=== PATIENT | female | born 1955 | race Caucasian/White ===

== ENCOUNTER 2017-06-25 18:15 | Emergency (ER) | payer OTHER, MEDICARE ==
[~2017-06-25] VITALS: Ht 157.5 cm; Wt 90.7 kg
[~2017-06-25 18:15] MED LIST: AMITRIPTYLINE100 M2 PO; CLOBETASOL PROP15 G1 TOP; CLONAZEPAM1 M2 PO; COUMADIN2.5 M1 PO; FENOFIBRATE145 M1 PO; LEVOTHYROXINE75 MCG PO; METHADONE HCL10 M1 PO; RISPERIDONE4 M1 PO; VENLAFAXINE HC100 M1 PO; VITAMIN D250000 UNIT PO
--- NOTE | 2017-06-25 18:25 | ED AMS/SEIZURE/WEAK/DIZZY ---
See Addendum History of Present Illness General Chief Complaint: Altered Mental Status Stated Complaint: AMS Source: patient, friend Exam Limitations: no limitations Vital Signs & Intake/Output Vital Signs & Intake/Output Vital Signs Date Time Temp Pulse Resp B/P B/P Pulse O2 O2 Flow FiO2 Mean Ox Delivery Rate 06/26 1414 97.8 68 16 123/64 99 Room Air 06/26 1218 98.2 78 18 138/65 98 Room Air 06/26 0954 97.8 72 16 126/63 98 Room Air 06/26 0752 97.7 68 16 101/60 99 Room Air 06/25 2139 98.3 83 18 118/59 95 06/25 1940 968.2 82 20 111/59 98 Room Air 06/25 1859 96 Room Air 06/25 1821 98.1 109 18 146/94 97 Room Air ED Intake and Output 06/26 0000 06/25 1200 Intake Total 0 Output Total Balance 0 Intake, IV 0 Patient 200 lb Weight Weight Reported by Patient Measurement Method Allergies Coded Allergies: codeine (Severe, SWOLLEN TONGUE 09/07/15) Triage Nurses Notes Reviewed? yes Onset: Gradual Duration: week(s): Timing: recent history Injury Environment: home Severity: moderate HPI: 62yo female with hx of PE/DVT, hypothyroidism, depression presents to ED for disorientation. Patient's friend is with her and friend states patient has-been acting abnormally today. Patient walked out of [employer] without paying for something. She had multiple conversations with her friend which seemed abnormal and off track. Friend believes that patient has been "off" for several months since the of her . When asked about these symptoms patient is unable to give much history, will answer with responses that don't make sense. Patient reports depression however denies SI/HI. The patient denies AH/VH , abdominal pain, fevers. (Donya DARNELL,Kelsey Daly) Reconcile Medications Amitriptyline HCl 100 MG TABLET 1 TAB PO QHS DEPRESSION/INSOMNIA (Reported) Clonazepam 1 MG TABLET 1 TAB PO BID ANXIETY (Reported) Ergocalciferol (Vitamin D2) (Vitamin D2) 50,000 UNIT CAPSULE 1 CAP PO U03AOAM SUPPLEMENT (Reported) Fenofibrate Nanocrystallized (Fenofibrate) 145 MG TABLET 1 TAB PO DAILY CHOLESTEROL (Reported) Levothyroxine Sodium 75 MCG TABLET 1 TAB PO DAILY HYPOTHYROIDISM (Reported) Methadone Hydrochloride (Methadone HCl) 10 MG TABLET 120 MG PO D SUBSTANCE ABUSE HX (Reported) Risperidone 4 MG TABLET 1 TAB PO QPM DEPRESSION (Reported) Venlafaxine HCl 100 MG TABLET 1 TAB PO QPM DEPRESSION (Reported) Warfarin Sodium (Coumadin) 2.5 MG TABLET 1 TAB PO 1700 CLOT (Reported) (Jacek Pillai DO) Past History Travel History Traveled to [place] past 21 day No Medical History Any Pertinent Medical History? 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 No (Kelsey Ho) Review of Systems Review of Systems Constitutional: Reports: no symptoms. EENTM: Reports: no symptoms. Respiratory: Reports: no symptoms. Cardiovascular: Reports: no symptoms. GI: Reports: no symptoms. Genitourinary: Reports: no symptoms. Musculoskeletal: Reports: no symptoms. Skin: Reports: no symptoms. Neurological/Psychological: Reports: see HPI. Hematologic/Endocrine: Reports: no symptoms. Immunologic/Allergic: Reports: no symptoms. All Other Systems: Reviewed and Negative (Kelsey Ho) Physical Exam Physical Exam General Appearance: well developed/nourished, no apparent distress, alert, awake Head: atraumatic, normal appearance Eyes: Bilateral: normal appearance, PERRL, EOMI. Ears, Nose, Throat: normal pharynx, hearing grossly normal Neck: normal inspection, supple, full range of motion Respiratory: normal breath sounds, no respiratory distress, lungs clear Cardiovascular: regular rate/rhythm Gastrointestinal: normal bowel sounds, soft, non-tender, no organomegaly Back: normal inspection, normal range of motion Extremities: normal range of motion Neurologic/Psych: no motor/sensory deficits, awake, alert, oriented x 3, manager clinic II- XII nml as tested Skin: intact, erythematous rash to bilateral hands, no swelling, warmth or tenderness Core Measures ACS in differential dx? No CVA/TIA Diagnosis No Sepsis Present: No Sepsis Focused Exam Completed? No (Donya DARNELL,Kelsey Daly) Progress Differential Diagnosis: arrythmia, alcohol intoxication, anemia, benign positional vertigo, CVA/stroke, dehydration, drug intoxication, encephalitis, electrolyte imbalance, hypoglycemia, intracranial Hem., intracranial mass/tumor, sepsis, UTI/pyelo Plan of Care: Orders Procedure Date/time Status Regular Diet 06/26 B Active Add-on Test (ER Only) 06/26 1046 Active EKG 06/26 1042 Active Patient Safety Monitor 06/26 0907 Active ED CRISIS PSYCH CONSULT 06/25 2041 Active ACETOMINOPHEN 06/25 1830 Complete SALICYLATE 06/25 1830 Complete Add-on Test (ER Only) 06/25 1824 Active URINE DRUG SCREEN FOR ER ONLY 06/25 1822 Complete URINALYSIS 06/25 1822 Complete THYROID STIMULATING HORMONE 06/25 1822 Complete FREE T4 06/25 1822 Complete ETHANOL 06/25 1822 Complete COMPREHENSIVE METABOLIC PANEL 06/25 1822 Complete CBC WITHOUT DIFFERENTIAL 06/25 1822 Complete Laboratory Tests 06/25/172054: Urine Opiates Screen < 100, Methadone Screen > 735 H, Barbiturate Screen < 60, Ur Phencyclidine Scrn 13.50, Amphetamines Screen 1415 H, U Benzodiazepines Scrn 113, Urine Cocaine Screen < 50, Urine Cannabis Screen < 5.00, Urine Color ROBYN, Urine Clarity HAZY H, Urine pH 6.0, Ur Specific [place] >= 1.030, Urine Protein NEG, Urine Ketones NEG, Urine Nitrite POS H, Urine Bilirubin NEG@ICTO, Urine Urobilinogen 0.2, Ur Leukocyte Esterase SMALL H, Ur Microscopic SEDIMENT EXAMINED, Urine RBC 1-3, Urine WBC 10-15 H, Ur Epithelial Cells MANY H, Urine Bacteria PACKD H, Urine Mucus RARE, Urine Hemoglobin SMALL H, Urine Glucose NEG 06/25/17 1830: Anion Gap 16, Estimated GFR 50 L, BUN/Creatinine Ratio 13.6, Glucose 82, Calcium 9.7, Total Bilirubin 1.0, AST 35, ALT 17, Alkaline Phosphatase 86, Total Protein 7.8, Albumin 4.8, Globulin 3.0, Albumin/Globulin Ratio 1.6, TSH 5.280 H , Free T4 1.46, CBC w Diff NO MAN DIFF REQ, RBC 4.60, MCV 82.1, MCH 27.3, MCHC 33.3, RDW 13.3, MPV 7.7, Gran % 60.6, Lymphocytes % 28.0, Monocytes % 10.1 H, Eosinophils % 0.8, Basophils % 0.5, Absolute Granulocytes 2.8, Absolute Lymphocytes 1.3, Absolute Monocytes 0.5, Absolute Eosinophils 0, Absolute Basophils 0, Salicylates < 1.0, Acetaminophen < 10.0 L, Serum Alcohol < 10.0 Patient reports chronic rash to bilateral hands related to a medication she takes. Head CT scan is within normal limits. Blood work shows elevated TSH however free T4 is within normal limits, patient has mild subclinical hypothyroidism. Remainder of blood work is within normal limits. Urine drug screen shows methadone and amphetamines. Patient is unable to carry on full conversation and answers questions inappropriately. She requires psychiatric evaluation given these findings with normal medical workup. The patient was signed out to Dr. Chahal pending crisis evaluation tomorrow morning. Diagnostic Imaging: Viewed by Me: CT Scan. Discussed w/RAD: CT Scan. Radiology Impression: PATIENT: JENNY TAMEZ PRESENT AGE: 62 PATIENT ACCOUNT NO: [id number] : 56 LOCATION: [facility] ORDERING PHYSICIAN: Kelsey DARNELL SERVICE DATE: 06/25/17 EXAM TYPE: CAT - CT HEAD WO IV CONTRAST EXAMINATION: CT HEAD WITHOUT CONTRAST CLINICAL INFORMATION: Disorientation and confusion. Assess for hemorrhage or lesion. COMPARISON: MRI scan 10/01/2016. TECHNIQUE: Contiguous axial imaging was performed from the skull base to vertex without intravenous administration of contrast. DLP: 617.56 mGy-cm FINDINGS: There is no evidence of acute intracranial hemorrhage or territorial infarction. No abnormal mass effect or midline shift is seen. Guy to white matter differentiation is well preserved. No extra-axial fluid collections are identified. The ventricles are normal in size. Brain parenchymal attenuation is unremarkable. There are no acute osseous findings. There is hyperostosis frontalis interna. There are no large scalp contusions or hematomas. The nasal septum is deviated to the right and is a prominent right-sided bony nasal septal spur. The mastoid air cells and visualized portions of the paranasal sinuses are well aerated. IMPRESSION: 1. There are no acute bleeds or territorial infarcts. No masses are demonstrated. DICTATED BY: Tato Byers MD DATE/TIME DICTATED:06/25/171842 GROUND LAYER :MARY DATE/TIME TRANSCRIBED:06/25/171842 CONFIDENTIAL, DO NOT COPY WITHOUT APPROPRIATE AUTHORIZATION. <Electronically signed in Other Vendor System> SIGNED BY: Tato Byers MD 06/25/17 185 Initial ED EKG: none Hand-Off Endorsed To: Stephen Chahal MD Endorsed Time: 005 Pending: consult (crisis) (Kelsey Ho) Hand-Off Endorsed To: Jacek Pillai DO Endorsed Time: 07 Pending: consult (Stephen Chahal MD) Departure Departure Disposition: STILL A PATIENT Condition: Stable Clinical Impression Primary Impression: Disorientation Referrals: Nikki Jordan MD (PCP/Family) Departure Forms: Customer Survey General Discharge Information (Kelsey Ho) Departure Comments 06/26/17 40 3 PM 52-year-old female status post altered mental status. Questionable overdose. On my exam she was awake and alert. Chest x-ray and flat and upright did not reveal any coins. She says she did not take significantly extra pills but took extra venlafaxine to sleep. SDhe has been cleared by crisis. (Jacek Pillai DO)
[2017-06-25 18:44] LABS: ABSOLUTE BASOPHIL COUNT 0 /CUMM (0.0-0.2); ABSOLUTE EOSINOPHIL COUNT 0 /CUMM (0.0-0.7); ABSOLUTE GRANULOCYTE CT 2.8 /CUMM (1.4-6.5); ABSOLUTE LYMPH COUNT 1.3 /CUMM (1.2-3.4); ABSOLUTE MONOCYTE COUNT 0.5 /CUMM (0.10-0.60); BASOPHIL % 0.5 % (0.0-2.0); EOSINOPHIL % 0.8 % (0-5); GRANULOCYTE % 60.6 % (42.2-75.2); HEMATOCRIT 37.8 % (37-47); MEAN CORPUSCULAR HGB 27.3 PG (27.0-31.0); MEAN CORPUSCULAR HGB CONC 33.3 G/DL (33.0-37.0); MEAN CORPUSCULAR VOLUME 82.1 FL (81.0-99.0); MEAN PLATELET VOLUME 7.7 FL (7.4-10.4); PLATELET COUNT 217 /CUMM (130-400); RBC DISTRIBUTION WIDTH 13.3 % (11.5-14.5); WHITE BLOOD CELL COUNT 4.6 /CUMM (4.8-10.8)
--- NOTE | 2017-06-25 18:50 | CT SCAN REPORT ---
EXAMINATION: CT HEAD WITHOUT CONTRAST CLINICAL INFORMATION: Disorientation and confusion. Assess for hemorrhage or lesion. COMPARISON: MRI scan 10/01/2016. TECHNIQUE: Contiguous axial imaging was performed from the skull base to vertex without intravenous administration of contrast. DLP: 617.56 mGy-cm FINDINGS: There is no evidence of acute intracranial hemorrhage or territorial infarction. No abnormal mass effect or midline shift is seen. Guy to white matter differentiation is well preserved. No extra-axial fluid collections are identified. The ventricles are normal in size. Brain parenchymal attenuation is unremarkable. There are no acute osseous findings. There is hyperostosis frontalis interna. There are no large scalp contusions or hematomas. The nasal septum is deviated to the right and is a prominent right-sided bony nasal septal spur. The mastoid air cells and visualized portions of the paranasal sinuses are well aerated. IMPRESSION: 1. There are no acute bleeds or territorial infarcts. No masses are demonstrated.
--- NOTE | 2017-06-26 11:36 | ED PSYCH CRISIS CONSULTATION ---
Crisis Consult Basic Assessment Date of Consult: 06/26/17 Responsible Person/Accompanied By: self Insurance Authorization: Insurance #1: Insurance name: MEDICARE A Phone number: Policy number: [id number] Group number: Authorization number: ED Provider: Patient's ED Provider: Kelsey Ho Primary Care Physician: Patient's PCP: Nikki AQUINO,Nikki PCP's Current Psychiatrist: Dr. Beltran Chief Complaint: Altered Mental Status Patient's Quote: "I took too much of my meds" Present Illness: Pt is a 62 year old female presenting to the ED yesterday with an AMS. According to triage notes, patient's friend brought her into the ED because they were at [employer] and the patient was not making sense during their conversations , left the store without paying for something and was overall confused. While in the ED patient had a CT Scan of her head with no acute findings. Pt was evaluated today by spragger and nutrition internship. Patient was oriented with the exception of thinking it was not Thursday. Crisis started with the mini mental status exam but was not showing any signs of cognitive impairments and the patient was tearful therefore the exam was not continued. Pt was unsure how she arrived to the ED and unsure why she was here. Patient did offer that she "took too much meds". Pt clarified that she thinks she took too much of her elavil that Dr. Beltran prescribes for sleep. Patient reports she took more than what she normally takes (but did not specify a quantity) because she was having a hard time sleeping. Pt denies this was a suicide attempt. Pt denies SI/HI. Pt does endorse the following depressive symptoms: poor sleep, no appetite, poor concentration, overall sadness, and thoughts of dying. Patient rates her depression a 10/10 on a scale of 1-10 with 10 being the most severe. Pt denies thoughts to kill herself and denies a plan to kill herself. She shared that she is grieving the loss of her partner of 10 years who 3 months ago in the home that she continues to live in. 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 Pt reports she is active in treatment at [facility]. She receives individual therapy, attends a bereavement group as well as sees a psychiatrist. Pt reports she is diagnosed with depression and anxiety. Pt reports she had a "psychotic episode" before when she was paranoid that people were following her and she was hypervigilant. Pt currently reports AH in the form of mumbling. Pt denies VH. Pt reports she has been hospitalized psychiatrically at [facility] and [facility] with her last inpatient hospitalization being in 1998. We discussed how a major life change can exasperate her psychiatric symptoms. Patient agreed that she doesn't handle stress well. Pt also disclosed that her parents are both sick which is an additional stressor. Patient was asked about the substances found in her UDS- Methadone and Amphetamines. Pt states that she is on 120 mg of Methadone from [facility] in [place] for a former Opioid addiction. Pt states that she gets 1 week of take home meds and is doing very well there. Pt also offered that she is prescribed Adipex for weight loss from "someone in [place]". It should be noted the pharmacy general manager reconciled pt's meds and there was not a claim for Adipex. ED doctor ordered EKG when he was informed pt took more elavil than prescribed as well as the Adipex. Furthermore, there were nursing notes that indicated the pt attempted to eat some of her coins therefore she had a xray of her abdomen. ED doctor medically cleared patient again post EKG. Crisis spoke to Phillip Aleman, Resident in Dr. Jordan's office [phone]. Phillip states that the patient was last seen in their office on 04/07/17 and was diagnosed with "mixed anxiety and depression". He is unaware of any new issues. Crisis completed the C-SSRS. Pt has the following risk factors: wishes to be (within last week), recent loss (partner of 10 years ), previous psychiatric dx/tx, & substance depedance (methadone tx). Pt has the following protective factors: responsibility to family (parents) and is actively engaged in treatment. Crisis spoke to Piedad at [facility] [phone]. Piedad states that the patient sees Sohan Baxter for therapy, and attends a group. Pt has been doing relatively well and was surprised to hear that the patient was here. Confirmed the following upcoming appointments for pt at [facility]- June 30 at 10:00 a.m. for group; July 01 @ 1:00 p.m. with therapist, Sohan Hui and July 20 at 10:[address] Beltran. Crisis consulted with Dr. Gerard Hoffman who agrees with the disposition to discharge patient to follow up with her outpatient provider, [facility] on Thursday. Crisis advised patient to stay away from drugs and etoh, to take medication as prescribed, and stop taking the Adipex. Pt agrees and appeared somewhat scared about what happened when she took more elavil that prescribed. She reports she will not do that again. Pt's upcoming appointments were written out for patient to take home with her. Pt was educated about 211 for EMPS. Pt was also informed she can come back to the ED if symptons worsen. Patient's Address: [place] [address] Other Who Do You Live With? Patient/Self Family/Informants Interviewed: colateral from friend Allergies - Coded Allergies: codeine (Severe, SWOLLEN TONGUE 09/07/15) Current Medications - Scheduled Medications Amitriptyline HCl 100 MG TABLET 1 TAB PO QHS DEPRESSION/INSOMNIA #30 ( Reported) Entered as Reported by Lili Leach on 09/07/15 0916 Clonazepam 1 MG TABLET 1 TAB PO BID ANXIETY #60 (Reported) Entered as Reported by Lili Leach on 09/07/15 0915 Ergocalciferol (Vitamin D2) (Vitamin D2) 50,000 UNIT CAPSULE 1 CAP PO C35OBMR SUPPLEMENT #3 (Reported) Entered as Reported by Lili Leach on 09/07/15 0918 Fenofibrate Nanocrystallized (Fenofibrate) 145 MG TABLET 1 TAB PO DAILY CHOLESTEROL #90 (Reported) Entered as Reported by Lili Leach on 09/07/15 0918 Levothyroxine Sodium 75 MCG TABLET 1 TAB PO DAILY HYPOTHYROIDISM #90 ( Reported) Entered as Reported by Lili Leach on 09/07/15 0918 Methadone Hydrochloride (Methadone HCl) 10 MG TABLET 120 MG PO D SUBSTANCE ABUSE HX (Reported) Entered as Reported by Lili Leach on 09/07/15 0924 Risperidone 4 MG TABLET 1 TAB PO QPM DEPRESSION #30 (Reported) Entered as Reported by Lili Leach on 09/07/15 0916 Venlafaxine HCl 100 MG TABLET 1 TAB PO QPM DEPRESSION #30 (Reported) Entered as Reported by Lili Leach on 09/07/15 0917 Warfarin Sodium (Coumadin) 2.5 MG TABLET 1 TAB PO 1700 CLOT #180 (Reported) Entered as Reported by Lili Leach on 09/07/15 0923 Laboratory Results: Laboratory Tests 06/25/172054: Urine Opiates Screen < 100, Methadone Screen > 735 H, Barbiturate Screen < 60, Ur Phencyclidine Scrn 13.50, Amphetamines Screen 1415 H, U Benzodiazepines Scrn 113, Urine Cocaine Screen < 50, Urine Cannabis Screen < 5.00, Urine Color ROBYN, Urine Clarity HAZY H, Urine pH 6.0, Ur Specific [place] >= 1.030, Urine Protein NEG, Urine Ketones NEG, Urine Nitrite POS H, Urine Bilirubin NEG@ICTO, Urine Urobilinogen 0.2, Ur Leukocyte Esterase SMALL H, Ur Microscopic SEDIMENT EXAMINED, Urine RBC 1-3, Urine WBC 10-15 H, Ur Epithelial Cells MANY H, Urine Bacteria PACKD H, Urine Mucus RARE, Urine Hemoglobin SMALL H, Urine Glucose NEG 06/25/17 1830: Anion Gap 16, Estimated GFR 50 L, BUN/Creatinine Ratio 13.6, Glucose 82, Calcium 9.7, Total Bilirubin 1.0, AST 35, ALT 17, Alkaline Phosphatase 86, Total Protein 7.8, Albumin 4.8, Globulin 3.0, Albumin/Globulin Ratio 1.6, TSH 5.280 H , Free T4 1.46, CBC w Diff NO MAN DIFF REQ, RBC 4.60, MCV 82.1, MCH 27.3, MCHC 33.3, RDW 13.3, MPV 7.7, Gran % 60.6, Lymphocytes % 28.0, Monocytes % 10.1 H, Eosinophils % 0.8, Basophils % 0.5, Absolute Granulocytes 2.8, Absolute Lymphocytes 1.3, Absolute Monocytes 0.5, Absolute Eosinophils 0, Absolute Basophils 0, Salicylates < 1.0, Acetaminophen < 10.0 L, Serum Alcohol < 10.0 Past History Past Medical History Neurological: NONE EENT: NONE Cardiovascular: hyperlipidemia Respiratory: pulmonary embolism (SADDLE) Gastrointestinal: NONE Hepatic: NONE Renal: NONE Musculoskeletal: NASAL FX Psychiatric: depression, substance abuse Endocrine: hypothyroidism Blood Disorders: DVT Cancer(s): 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 Pt current / Care Response to Treatment pt has remained stable outside of an inpatient hospital setting since 1998. pt is active with Care with a therapist and Dr. Beltran. Diagnosis by History: depression anxiety Substance Use/Abuse History Drug Use/Abuse 1 Substances Used/Abused Yes Substance Used/Abused Other (list in comments) (Methadone) First Use unk Last Used 06/25/17 How much used/taken 120 mg How often daily For how long unk Route of use oral Drug Use/Abuse 2 Substances Used/Abused Yes Substance Used/Abused Other (list in comments) (phentermine (ADIPEX-P)) First Use unk Last Used unk How much used/taken unk How often unk For how long unk Route of use oral Substance Abuse Treatment Substance Abuse Treatment Past Substance Abuse [place] Yes Inpatient Treatment No Outpatient Treatment Yes Location of Treatment [facility] [place] Reason for Treatment Opiod dep Dates of Treatment current Response to Treatment good, patient takes home 1 week of meds at a time from [facility]. Comments: pt reports she is prescribed Adipex-P by someone in [place], however there are no pharmacy claims in her record for this medication. Current Mental Status Mental Status Orientation: Person, Place, Situation Affect: Sad Speech: Soft Neuro-vegetative: Anhedonia, Appetite Decreased, Concentration Poor, Sleep Disturbance Appearance Appearance- Dress/Hygiene: pt presents in hospital scrubs. No remarkable features Behaviors Thought Process: WNL Thought Content: Auditory Hallucinations (mumbling) Memory: Immediate Insight: Poor SI/HI Risk Assessment Past Suicidal Ideation/Attempts No Current Suicidal Ideation/Att No Past Homicidal Ideation/Att: No Current Homicidal Ideation/Attempts No Degree of Intent: None Gravely Disabled: Poor Judgment Risk Factors: SA/MH hospitalized, substance abuse, lives alone, limited support DSM5/PS Stressors/Medical Prob Diagnosis' (DSM 5, Stressors, Medical): F32.9 Unspecified Depressive Disorder F41.9 Unspecified Anxiety Disorder F11.20 Opiod Use Disorder, on Maintenance therapy (Methadone) Z63.4 Uncomplicated Bereavement Hyperlipmedia hx of bilateral knee replacements Current GAF: 45 Departure Disposition Psych Medical Clearance Date: 06/26/17 Medically Cleared at: 1005 Time Started: 1005 Time Ended: 1035 Psychiatrist Consulted: Dr. Gerard Hoffman Date Disposition Established: 06/26/17 Time Disposition Established: 1200 Plan for Disposition - Modality: Outpatient Facility: [facility] Follow-up Appt Date: 06/29/17 Follow-Up Appt Time: 1000 (Group) Contact: Piedad Menezes [phone] Referrals Nikki AQUINO,Nikki (PCP/Family)
--- NOTE | 2017-06-26 12:08 | RADIOLOGY REPORT ---
EXAMINATION: XR ABDOMEN WITH PA CHEST CLINICAL INDICATION: Foreign body evaluation COMPARISON: 10/25/2013 TECHNIQUE: AP radiograph of the chest. AP supine and upright radiographs of the abdomen and pelvis. FINDINGS: No radiopaque foreign bodies to indicate ingested coins. There is an IVC filter. Lungs appear clear. There is no evidence of free air or obstruction. No abnormal calcifications are seen. IMPRESSION: Unremarkable examination.
[2017-06-26 14:14] VITALS: BP 123/64
== END 2017-06-26 14:47 ==
LOC: ERH 18:15
PROVIDERS: Physician Assistant
DX: R41.0 Disorientation, unspecified (principal); R41.82 Altered mental status, unspecified; Z86.711 Personal history of pulmonary embolism
CPT/HCPCS: 74022; 80307; 81001; 93005; 93010; G0463; G0480